=== PATIENT | female | born 1985 | race Two or more races ===

== ENCOUNTER 2024-11-24 16:15 | Emergency (ER) | payer BC ==
[~2024-11-24] VITALS: Ht 167.6 cm; Wt 62.1 kg
[2024-11-24] MEDS ORDERED: KETOROLAC TROMETHAMINE INJ 30 MG/ML VIAL ONE (16:53)
[2024-11-24] MEDS: KETOROLAC TROMETHAMINE INJ 30 MG/ML VIAL IM ONE (17:25)
[2024-11-24] MEDS ORDERED: IBUP-1953 PO (20:54)
[2024-11-24 21:03] VITALS: BP 111/75; TEMP 98; O2SAT 98
== END 2024-11-24 21:03 | disposition home or self-care (01) ==
LOC: ER 16:23
DX: M54.2 Cervicalgia (principal); V43.52XA Car driver injured in collision with other type car in traffic accident, initial encounter; Y93.89 Activity, other specified; Y92.410 Unspecified street and highway as the place of occurrence of the external cause; Y99.8 Other external cause status
CPT/HCPCS: 99283; 96372; 72050; J1885